=== PATIENT | female | born 1985 | race Two or more races ===

== ENCOUNTER 2023-07-16 23:19 | Emergency (ER) | payer OTHER ==
[~2023-07-16] VITALS: Ht 167.6 cm; Wt 129.1 kg
[2023-07-16 23:23] VITALS: TEMP 98.4
[2023-07-16 23:45] VITALS: BP 119/71; PULSE 71; RESP 19
== END 2023-07-17 01:32 | disposition left against medical advice (07) ==
LOC: EMS 23:21
DX: M54.50 Low back pain, unspecified (principal); Z53.21 Procedure and treatment not carried out due to patient leaving prior to being seen by health care provider
CPT/HCPCS: 99281; Z7502

== ENCOUNTER 2024-10-18 12:08 | Emergency (ER) | payer OTHER, MEDICAID ==
[~2024-10-18] VITALS: Ht 167.6 cm; Wt 128.6 kg
[2024-10-18] MEDS ORDERED: LEVO50 PO (12:12)
[2024-10-18] MEDS ORDERED: METF-1211 PO (12:12)
[2024-10-18 12:14] VITALS: TEMP 98.3
[2024-10-18 12:15] VITALS: BP 119/65; PULSE 84; RESP 17; O2SAT 99
[2024-10-18] MEDS ORDERED: IBUP-1492 PO (14:12)
== END 2024-10-18 14:34 | disposition home or self-care (01) ==
LOC: EMS 12:08
DX: S90.111A Contusion of right great toe without damage to nail, initial encounter (principal); I10 Essential (primary) hypertension; E03.9 Hypothyroidism, unspecified; Z98.890 Other specified postprocedural states; W22.8XXA Striking against or struck by other objects, initial encounter; Y93.89 Activity, other specified; Y92.89 Other specified places as the place of occurrence of the external cause; Y99.8 Other external cause status
CPT/HCPCS: 99283